=== PATIENT | male | born 1995 | race Caucasian/White ===

== ENCOUNTER 2016-12-09 00:40 | Emergency (ER) | payer MEDICAID ==
[~2016-12-09] VITALS: Ht 175.3 cm; Wt 68.9 kg
[2016-12-09 01:27] LABS: Basophils # (auto) 0.1 uL; Basophils % (auto) 0.6 % (0.0-2.0); Eosinophils # (auto) 0.1 uL; Eosinophils % (auto) 1.1 % (0.0-7.0); Hematocrit 40.5 % (41.0-53.0); Hemoglobin 13.9 g/dL (13.5-17.5); Lymphocytes % (auto) 28.9 % (10.0-50.0); Mean Corpuscular Hgb Conc. 34.2 g/dL (32.0-36.0); Mean Corpuscular Volume 93.4 fL (80.0-100.0); Mean Platelet Volume 9.7 fL (6.9-10.8); Monocytes # (auto) 0.7 uL; Monocytes % (auto) 7.1 % (0.0-12.0); Neutrophils # (auto) 6.5 uL; Neutrophils % (auto) 62.3 % (37.0-80.0); Nucleated Red Blood Cells % 0.1 %; Platelet Count (auto) 165 10^3/uL (140-450); White Blood Cell 10.4 10^3/uL (4.4-10.8)
[2016-12-09 01:45] LABS: Albumin 3.9 g/dL (3.4-5.0); Anion Gap 5 (5-15); Aspartate Aminotransferase 20 U/L (15-37); BUN/Creatinine Ratio 12.3; Blood Urea Nitrogen 13 mg/dL (7-18); Calcium 8.8 mg/dL (8.5-10.1); Carbon Dioxide 28 mmol/L (21-32); Chloride 109 mmol/L (98-107); GFR African American 112 mL/min; GFR Non-African American 93 mL/min; Glucose 98 mg/dL (74-106); Sodium 142 mmol/L (136-145)
[2016-12-09 01:49] LABS: Alkaline Phosphatase 63 U/L (45-117); Bilirubin, Total 1.2 mg/dL (0.2-1.0)
== END 2016-12-09 09:52 | disposition home or self-care (01) ==
LOC: ER 00:45
DX: S93.401A Sprain of unspecified ligament of right ankle, initial encounter (principal); R00.1 Bradycardia, unspecified; F17.210 Nicotine dependence, cigarettes, uncomplicated; X50.0XXA Overexertion from strenuous movement or load, initial encounter; Y93.51 Activity, roller skating (inline) and skateboarding; Y99.8 Other external cause status; Y92.89 Other specified places as the place of occurrence of the external cause
CPT/HCPCS: 36415; 71010; 73610; 80053; 80307; 84484; 85025; 93005

== ENCOUNTER 2016-12-28 19:08 | Emergency (ER) | payer MEDICAID ==
[~2016-12-28] VITALS: Ht 172.7 cm; Wt 69.4 kg
[2016-12-28 19:39] VITALS: BP 113/67
[2016-12-28] MEDS ORDERED: KETOROLAC TROMETH 60MG/2ML VIAL IM ONE (21:30)
== END 2016-12-28 21:53 | disposition home or self-care (01) ==
LOC: ER 19:17
DX: S46.911A Strain of unspecified muscle, fascia and tendon at shoulder and upper arm level, right arm, initial encounter (principal); F17.210 Nicotine dependence, cigarettes, uncomplicated; V00.131A Fall from skateboard, initial encounter; Y93.51 Activity, roller skating (inline) and skateboarding; Y92.89 Other specified places as the place of occurrence of the external cause; Y99.8 Other external cause status
CPT/HCPCS: 73030; 96372; 99284; J1885

== ENCOUNTER 2019-05-04 12:10 | Emergency (ER) | payer MEDICAID ==
[~2019-05-04] VITALS: Ht 172.7 cm; Wt 72.6 kg
[2019-05-04] MEDS ORDERED: traMADol HCL 50 MG TAB PO ONE (14:15)
[2019-05-04 14:26] VITALS: BP 123/76
== END 2019-05-04 14:33 | disposition home or self-care (01) ==
LOC: ER 12:13
DX: S20.211A Contusion of right front wall of thorax, initial encounter (principal); S40.011A Contusion of right shoulder, initial encounter; F17.210 Nicotine dependence, cigarettes, uncomplicated; V00.311A Fall from snowboard, initial encounter; Y93.23 Activity, snow (alpine) (downhill) skiing, snowboarding, sledding, tobogganing and snow tubing; Y92.89 Other specified places as the place of occurrence of the external cause; Y99.8 Other external cause status
CPT/HCPCS: 71101; 73030

== ENCOUNTER → 2019-06-16 | Emergency (ER) | payer MEDICAID ==
[~2019-06-16] VITALS: Ht 175.3 cm; Wt 68.0 kg
[~2019-06-16] MED LIST: MORPHINE SULF INJ 2 MG/ML SYRINGE 1ML IM ONE; MORPHINE SULFATE 4 MG/ML SYR/VIAL IV ONE; PROMETHAZINE HCL 25 MG/ML 1ML IM ONE; PROMETHAZINE HCL 25 MG/ML 1ML IV ONE
[2019-06-16 19:00] VITALS: BP 100/69
== END | disposition home or self-care (01) ==
LOC: EDUNIT# 16:36 → EDBD 16:41 → ER 16:41
DX: S40.011A Contusion of right shoulder, initial encounter (principal); S43.101A Unspecified dislocation of right acromioclavicular joint, initial encounter; S00.03XA Contusion of scalp, initial encounter; F17.210 Nicotine dependence, cigarettes, uncomplicated; V00.131A Fall from skateboard, initial encounter; Y93.51 Activity, roller skating (inline) and skateboarding; Y92.89 Other specified places as the place of occurrence of the external cause; Y99.8 Other external cause status
CPT/HCPCS: 29105; 70450; 72125; 73030; 96372; 99285; J2270; J2550

== ENCOUNTER 2019-06-19 19:09 | Emergency (ER) | payer MEDICAID ==
[~2019-06-19] VITALS: Ht 175.3 cm; Wt 72.6 kg
[2019-06-19 20:25] VITALS: BP 118/86
== END 2019-06-19 20:56 | disposition home or self-care (01) ==
LOC: ER 19:09
DX: S43.101A Unspecified dislocation of right acromioclavicular joint, initial encounter (principal); S43.401A Unspecified sprain of right shoulder joint, initial encounter; W19.XXXA Unspecified fall, initial encounter; Y93.51 Activity, roller skating (inline) and skateboarding; Y92.89 Other specified places as the place of occurrence of the external cause; Y99.8 Other external cause status
CPT/HCPCS: 73030

== ENCOUNTER 2019-11-15 11:28 | Emergency (ER) | payer MEDICAID ==
[~2019-11-15] VITALS: Ht 172.7 cm; Wt 72.6 kg
[2019-11-15 12:47] VITALS: BP 112/76
== END 2019-11-15 13:53 | disposition home or self-care (01) ==
LOC: ER 11:28
DX: S46.911A Strain of unspecified muscle, fascia and tendon at shoulder and upper arm level, right arm, initial encounter (principal); F17.210 Nicotine dependence, cigarettes, uncomplicated; Y04.0XXA Assault by unarmed brawl or fight, initial encounter; Y93.89 Activity, other specified; Y92.89 Other specified places as the place of occurrence of the external cause; Y99.8 Other external cause status
CPT/HCPCS: 73030

== ENCOUNTER 2023-07-20 12:32 | Emergency (ER) | payer MEDICAID ==
[~2023-07-20] VITALS: Ht 175.3 cm; Wt 71.0 kg
[2023-07-20] MEDS: IOHEXOL 300 MG/ML 100ML BOTTLE IJ ONE (16:06)
[2023-07-20] MEDS: KETOROLAC TROMETH 60MG/2ML VIAL IM ONE (16:10)
[2023-07-20] MEDS ORDERED: IBU600T PO (18:38)
[2023-07-20 18:59] VITALS: BP 138/78; PULSE 89; RESP 17; TEMP 97.8; O2SAT 98
== END 2023-07-20 19:01 | disposition home or self-care (01) ==
LOC: ER 12:32
DX: M54.2 Cervicalgia (principal); R07.89 Other chest pain; M25.512 Pain in left shoulder; M25.511 Pain in right shoulder; M25.552 Pain in left hip; M25.551 Pain in right hip; F17.210 Nicotine dependence, cigarettes, uncomplicated; F12.10 Cannabis abuse, uncomplicated; V29.99XA Rider (driver) (passenger) of other motorcycle injured in unspecified traffic accident, initial encounter; Y93.89 Activity, other specified; Y92.89 Other specified places as the place of occurrence of the external cause; Y99.8 Other external cause status
CPT/HCPCS: 70450; 71260; 72125; 74177; 96372; 99285; J1885; Q9967

== ENCOUNTER 2023-08-25 16:16 | Emergency (ER) | payer SELFPAY ==
[~2023-08-25] VITALS: Ht 175.3 cm; Wt 75.0 kg
[~2023-08-25 16:16] MED LIST changes: +IBU600T PO; -MORPHINE SULF INJ 2 MG/ML SYRINGE 1ML IM ONE; -MORPHINE SULFATE 4 MG/ML SYR/VIAL IV ONE; -PROMETHAZINE HCL 25 MG/ML 1ML IM ONE; -PROMETHAZINE HCL 25 MG/ML 1ML IV ONE
[2023-08-25] MEDS: ONDANSETRON HCL 4 MG/2 ML VIAL IV ONE (16:45)
[2023-08-25] MEDS: fentaNYL CITRATE 100 MCG/2 ML VL IV ONE ×2 (16:53→19:41)
[2023-08-25] MEDS: ceFAZolin 1GM/50ML 50 ML IV ONE (17:31)
[2023-08-25] MEDS: SODIUM CHLORIDE 0.9% 1,000 ML IV ONE (17:32)
[2023-08-25] MEDS: TETANUS-DIPTH-ACEL PERTUSSIS 0.5ML SYR Tdap IM ONE (17:39)
[2023-08-25 18:56] LABS: Basophils # (auto) 0 10 ^3/uL (0-0.2); Basophils % (auto) 0.2 % (0.0-2.0); Eosinophils # (auto) 0.1 10 ^3/uL (0-0.8); Eosinophils % (auto) 0.8 % (0.0-7.0); Hematocrit 38.9 % (41.0-53.0); Hemoglobin 13.1 g/dL (13.5-17.5); Lymphocytes # (auto) 1.7 10 ^3/uL (0.4-5.4); Lymphocytes % (auto) 13.6 % (10.0-50.0); Mean Corpuscular Hemoglobin 31.9 pg (28.0-32.0); Mean Corpuscular Hgb Conc. 33.6 g/dL (32.0-36.0); Mean Corpuscular Volume 95.1 fL (80.0-100.0); Monocytes # (auto) 0.9 10 ^3/uL (0-1.3); Monocytes % (auto) 7.6 % (0.0-12.0); Neutrophils # (auto) 9.7 10 ^3/uL (1.6-8.6); Neutrophils % (auto) 77.8 % (37.0-80.0); Nucleated Red Blood Cells % 0.1 %; Red Cell Distribution Width 13.2 % (11.8-14.3); White Blood Cell 12.5 10^3/uL (4.4-10.8)
[2023-08-25 19:13] LABS: Alanine Aminotransferase 19 U/L (7-40); Alkaline Phosphatase 81 U/L (46-116); Anion Gap 5 (5-15); BUN/Creatinine Ratio 12.9 (10.0-20.0); Blood Urea Nitrogen 11 mg/dL (9-23); Calcium 8.8 mg/dL (8.5-10.1); Carbon Dioxide 24 mmol/L (20-30); Chloride 112 mmol/L (98-107); Glucose 104 mg/dL (74-106); Potassium 3.8 mmol/L (3.5-5.1); Sodium 141 mmol/L (136-145)
[2023-08-25 19:14] LABS: Albumin 3.9 g/dL (3.2-4.8); Aspartate Aminotransferase 17 U/L (13-40); Bilirubin, Total 0.7 mg/dL (0.2-1.0); Creatine Kinase IFCC 189 U/L (46-171)
[2023-08-25 20:00] VITALS: PULSE 50; RESP 14; TEMP 98.3; O2SAT 99
[2023-08-25] MEDS: HYDROcodone-ACET 5/325MG TAB PO ONE (23:42)
[2023-08-26] MEDS: LIDOCAINE W/ EPINEPHRINE 2% INJ 20ML VIAL IJ ONE (00:25)
[2023-08-26] MEDS: LIDOCAINE W/ EPINEPHRINE 2% INJ 20ML VIAL ONE (00:25)
[2023-08-26] MEDS ORDERED: CEPH500C PO (00:26)
[2023-08-26 01:15] VITALS: BP 136/61; PULSE 63; RESP 16; O2SAT 97
== END 2023-08-26 01:15 | disposition admitted as inpatient to this hospital (09) ==
LOC: ER 16:16
DX: S81.811A Laceration without foreign body, right lower leg, initial encounter (principal); M79.604 Pain in right leg; F17.210 Nicotine dependence, cigarettes, uncomplicated; F15.90 Other stimulant use, unspecified, uncomplicated; Z98.890 Other specified postprocedural states; Z79.899 Other long term (current) drug therapy; Y04.2XXA Assault by strike against or bumped into by another person, initial encounter; Y93.55 Activity, bike riding; Y92.89 Other specified places as the place of occurrence of the external cause; Y99.8 Other external cause status
CPT/HCPCS: 12001; 36415; 70450; 71250; 72125; 73560; 73590; 73610; 74176; 80053; 82550; 85025; 90471; 90715; 96365; 96375; 96376; 99285; J0690; J2405; J3010

== ENCOUNTER 2024-01-14 22:28 | Emergency (ER) | payer SELFPAY ==
[~2024-01-14 22:28] MED LIST changes: +CEPH500C PO
[2024-01-14 23:32] LABS: Basophils # (auto) 0 10 ^3/uL (0-0.2); Basophils % (auto) 0.4 % (0.0-2.0); Eosinophils # (auto) 0.1 10 ^3/uL (0-0.8); Eosinophils % (auto) 1.3 % (0.0-7.0); Hematocrit 42.3 % (41.0-53.0); Hemoglobin 14.4 g/dL (13.5-17.5); Lymphocytes # (auto) 2.8 10 ^3/uL (0.4-5.4); Lymphocytes % (auto) 23.9 % (10.0-50.0); Mean Corpuscular Hemoglobin 31.8 pg (28.0-32.0); Mean Corpuscular Hgb Conc. 34.1 g/dL (32.0-36.0); Mean Corpuscular Volume 93.4 fL (80.0-100.0); Monocytes # (auto) 0.8 10 ^3/uL (0-1.3); Monocytes % (auto) 6.9 % (0.0-12.0); Neutrophils # (auto) 7.8 10 ^3/uL (1.6-8.6); Neutrophils % (auto) 67.5 % (37.0-80.0); Platelet Count (auto) 195 10^3/uL (140-450); Red Blood Cells 4.53 10^6/uL (4.5-5.90); White Blood Cell 11.5 10^3/uL (4.4-10.8)
[2024-01-14 23:49] LABS: Chloride 110 mmol/L (98-107); Sodium 141 mmol/L (136-145)
[2024-01-14 23:50] LABS: Anion Gap 5 (5-15); Calcium 9.6 mg/dL (8.7-10.4); Carbon Dioxide 26 mmol/L (20-31)
[2024-01-14 23:55] LABS: BUN/Creatinine Ratio 9.5 (10.0-20.0); Blood Urea Nitrogen 12 mg/dL (9-23); Glucose 89 mg/dL (74-106)
== END 2024-01-14 23:19 | disposition home or self-care (01) ==
LOC: ER 22:28
DX: F17.210 Nicotine dependence, cigarettes, uncomplicated (principal); F12.90 Cannabis use, unspecified, uncomplicated; Z87.442 Personal history of urinary calculi
CPT/HCPCS: 36415; 80048; 85025

== ENCOUNTER 2024-01-14 23:24 | Emergency (ER) | payer SELFPAY ==
[~2024-01-14] VITALS: Ht 175.3 cm; Wt 75.0 kg
[2024-01-15 01:43] VITALS: TEMP 98.3
[2024-01-15] MEDS: SODIUM CHLORIDE 0.9% 1,000 ML IV ONE (01:56)
[2024-01-15] MEDS: KETOROLAC TROMETH 30 MG/ML 1ML VIAL IV ONE (01:56)
[2024-01-15] MEDS: ONDANSETRON HCL 4 MG/2 ML VIAL IV ONE (01:59)
[2024-01-15] MEDS: TAMSULOSIN HYDROCHLORIDE 0.4 MG CAP PO ONE (01:59)
[2024-01-15] MEDS: MORPHINE SULFATE 4 MG/ML SYR/VIAL IV ONE (02:04)
[2024-01-15 02:07] VITALS: PULSE 50; RESP 16; O2SAT 96
[2024-01-15 03:05] VITALS: BP 103/49; PULSE 47; RESP 18
== END 2024-01-15 05:41 | disposition left against medical advice (07) ==
LOC: ER 23:24
DX: N13.2 Hydronephrosis with renal and ureteral calculous obstruction (principal); R10.9 Unspecified abdominal pain; F17.210 Nicotine dependence, cigarettes, uncomplicated; F12.90 Cannabis use, unspecified, uncomplicated
CPT/HCPCS: 74176; 96361; 96374; 96375; 99285; J1885; J2270; J2405; J7030